=== PATIENT | male | born 1955 | race Caucasian/White ===

== ENCOUNTER → 2021-10-15 | Day surgery (SDC) | payer MEDICARE ==
[~2021-10-15] MED LIST: CARDURA XL4 MG PO; CARDURA2 MG PO; HYDROCHLOROTHIA25 M1 PO; HYDROCODON-ACE1 EAC7 PO; IRON236 MG PO; NORVASC10 MG PO; PRINIVIL40 MG PO; PROSCAR 5MG TABL5 M1 PO
--- NOTE | ~2021-10-15 | OP ---
[facility] [address] [place] [address] OPERATIVE REPORT Name: LEIDY HORN Room: [facility].#: [id number] Admission: 10/15/21 Attend Phys: Nikos Knox Discharge: Date of : 53 Report #: [id number] THIS REPORT FOR: cc: Fredo Kennedy MD, Keninde A. MD Patterson,Nikos Lancaster MD ~ DATE OF SURGERY: 10/15/2021 PREOPERATIVE DIAGNOSIS: Incarcerated umbilical hernia. POSTOPERATIVE DIAGNOSIS: Incarcerated umbilical hernia. OPERATION: Laparoscopic repair of incarcerated ventral hernia with mesh. SURGEON: Nikos Knox MD. ANESTHESIA: General. ESTIMATED BLOOD LOSS: 10 mL. SPECIMENS: None. DESCRIPTION OF PROCEDURE: After informed consent was obtained, the patient was brought to the operating room and placed supine. SCDs were placed and working, preoperative antibiotics were administered, general anesthesia was induced. The abdomen was prepped and draped in the usual sterile fashion. A 5 mm incision was made in the left upper quadrant. A 5 mm trocar was placed under direct vision. Pneumoperitoneum was established. Left-sided 8 mm trocar and a right-sided 5 mm trocar was placed. He had an umbilical hernia defect. The defect measured approximately 2 cm. He had a small hernia sac, which I was able to fully reduce. I then inserted an 11 cm Bard Ventralight mesh. It was brought up to the abdominal wall. It was tacked with 30 absorbable tacks circumferentially. I then placed a transfascial 2-0 Ethibond suture using a suture passer in the midline of the mesh. The ports were removed under direct vision. The skin was closed with 4-0 Monocryl. Incisions were dressed with Steri-Strips. COMPLICATIONS: None. DISPOSITION: The patient was taken to recovery in satisfactory condition. By: [id number] Knox MD /jasmin
[2021-10-15 07:08] LABS: HEMATOCRIT 41.7 % (42.0-52.0); HEMOGLOBIN 13.6 gm/dL (14.0-18.0); MCH 28.9 pg (26.0-34.0); MCHC 32.7 g/dL (28.0-37.0); MCV 88.3 fL (80.0-100.0); MPV 7.9 fl. (7.2-11.1); RBC 4.72 mil/uL (4.50-6.00); RDW-CV 15.6 % (10.5-14.5); WBC 7.7 thou/uL (4.0-11.0)
[2021-10-15 07:27] LABS: CALCIUM 9.3 mg/dL (8.5-10.1); CREATININE 0.8 mg/dL (0.6-1.3); POTASSIUM 3.9 mmol/L (3.5-5.1)
--- NOTE | 2021-10-15 09:32 | EKG ---
[place] [address] ELECTROCARDIOGRAM REPORT Name: LEIDY HORN Room: [facility]#: [id number] Admission: 10/15/21 Attend Phys: Nikos Rivera Discharge: Date of : 53 Date of Service: 10/15/21 0751 Report #: [id number] THIS REPORT FOR: //name// [facility] Test Date: 2021-10-15 Test Time: 07:51:23 Pat Name: LEIDY HORN Department: Room: Gender: Automobile Mechanic: : 1955 Requested By: Madison Nice Order Number: [id number] Opal MD: Saravanan Arthur Measurements Intervals Mellen Rate: 59 P: 47 WV: 144 QRS: 0 QRSD: 106 T: -27 QT: 447 QTc: 443 Interpretive Statements Sinus rhythm Nonspecific ST-T abnormalities inferolateral leads No previous ECG available for comparison Electronically Signed On 10-15-2021 9:32:14 OR FIRST ASSIST REGISTERED NURSE by Saravanan Arthur [email or web address] <ELECTRONICALLY SIGNED> By: Saravanan Arthur MD, [facility] 10/15/21 0932 [id number] Saravanan Arthur MD, FAC /EPI
== END | disposition home or self-care (01) ==
LOC: M.SUR 06:29
PROVIDERS: Anesthesiology; ATTEND Surgery
DX: K42.0 Umbilical hernia with obstruction, without gangrene (principal); Z20.822 Contact with and (suspected) exposure to COVID-19; Z79.899 Other long term (current) drug therapy